=== PATIENT | male | born 1970 | race Caucasian/White ===

== ENCOUNTER → 2021-05-03 | Outpatient (CLI) | payer OTHER ==
--- NOTE | 2021-05-03 16:43 | Diagnostic Imaging Report ---
EXAMINATION: Lumbar spine at 1146 AM INDICATION: Back pain 3 views were obtained. There are no prior studies available for comparison. The lateral view shows vertebral body heights and alignment to be within normal limits. The intervertebral disc spaces are also well maintained. There is no fracture or acute bony abnormality evident. There is no sign of a paraspinal mass. However, there is a vague ringlike calcific density measuring 1.7 cm overlying the left mid abdomen at the level of L2-L3. There is no corresponding abnormality identified with certainty on the lateral view and this finding may be secondary to superimposition or may be extraneous to the patient. The sacroiliac joints are within normal limits. IMPRESSION: 1. There is no evidence for an acute bony abnormality. 2. There do not appear to be any significant arthritic changes involving the lumbar spine. 3. However, if there is clinical concern regarding spinal stenosis or nerve root encroachment, then MRI would be recommended for further study. Dictated by: Dictated on workstation # [id number]
== END ==
LOC: RAD FS 11:32
PROVIDERS: ATTEND Nurse Practitioner Family
DX: M54.16 Radiculopathy, lumbar region (principal)
CPT/HCPCS: 72100